=== PATIENT | male | born 1950 | race Caucasian/White ===

== ENCOUNTER 2024-02-17 11:31 | Emergency (ER) | payer MEDICARE ==
[~2024-02-17] VITALS: Ht 182.9 cm; Wt 149.5 kg
[~2024-02-17 11:31] MED LIST: CEPHALEXIN500 M1 PO; CLEOCIN HCL300 MG PO; LEXAPRO 10MG10 MG PO; MINOCYCLIN100 MG/CAP PO; MOBIC 7.5MG7.5 MG PO; NORCO 325 MG-7.1 TAB PO; PRINIVIL10 MG PO; ZOCOR 10MG10 MG PO
[2024-02-17 11:35] VITALS: TEMP 98.1
[2024-02-17 12:30] LABS: ALANINE AMINOTRANSFERASE 15 U/L (0-55); ALBUMIN 3.6 g/dL (3.4-4.8); ALKALINE PHOSPHATASE 74 U/L (40-150); ANION GAP 11 mmol/L (7-16); AST,SGOT 16 U/L (5-34); BILIRUBIN,TOTAL 0.8 mg/dL (0.2-1.2); BLOOD UREA NITROGEN 16 mg/dL (8-26); CALCIUM 9.3 mg/dL (8.4-10.2); CHLORIDE 104 mEq/L (98-107); GLUCOSE 109 mg/dL (70-99); POTASSIUM 3.8 mEq/L (3.5-4.5); SODIUM 140 mEq/L (136-145); TOTAL PROTEIN 6.8 g/dl (6.2-8.1)
[2024-02-17 12:37] LABS: TROPONIN-I < 0.010 ng/mL (0.00-0.033)
[2024-02-17 12:44] LABS: BASO # 0.1 K/mm3 (0.0-0.2); BASO % 0.9 % (0.0-2.0); EOS # 0.1 K/mm3 (0.0-0.7); EOS % 1.6 % (0.0-4.0); GRAN # 3.8 K/mm3 (1.4-6.5); GRAN % 56.1 % (42.2-75.2); HEMATOCRIT 46.2 % (42.0-52.0); HEMOGLOBIN 16.3 g/dl (13.5-18.0); LYMPH # 2.3 K/mm3 (1.2-3.4); LYMPH % 33.6 % (20.0-51.0); MEAN CELL VOLUME 87 fl (80.0-100.0); MEAN CORPUSCULAR HEMOGLOBIN 31 pg (27-31); MEAN CORPUSCULAR HGB CONC 35 g/dl (33.0-37.0); MEAN PLATELET VOLUME 9.6 fl (7.4-10.4); MONO # 0.5 K/mm3 (0.1-0.6); MONO % 7.7 % (1.7-9.3); PLATELET COUNT 242 K/mm3 (130-400); RED BLOOD COUNT 5.29 M/mm3 (4.20-5.60); REDCELL DISTRIBUTION WIDTH-CV 13.8 % (11.5-14.5)
[2024-02-17] MEDS ORDERED: Iohexol 300 - 100 ML VIAL IV ONE (12:55)
[2024-02-17] MEDS ORDERED: NS 100 ML IV SCH (12:56)
[2024-02-17 14:14] VITALS: BP 143/74; PULSE 69
== END 2024-02-17 14:20 | disposition home or self-care (01) ==
LOC: COL.ER 11:31
PROVIDERS: Physician Assistant
DX: R06.02 Shortness of breath (principal)
CPT/HCPCS: Q9967